=== PATIENT | female | born 1985 | race American Indian/Alaskan Native ===

== ENCOUNTER 2018-11-08 11:46 | Emergency (ER) | payer SELFPAY ==
--- NOTE | 2018-11-08 12:59 | Emergency Department Report ---
ED General Adult HPI - General Chief complaint: Eye Problems Stated complaint: BLURY VISION/VAGINAL SWELLING Time Seen by Provider: 11/08/18 12:10 Source: patient Mode of arrival: Ambulatory Limitations: No Limitations - History of Present Illness Initial comments: 32-year-old female presents to the hospital complaining of blurred vision 3 weeks and right vaginal pain after shaving since last night. Patient reports that she's been told in the past that she is a diabetic but has not ever been on medications due to lack of follow-up. POC glucose is 133 here today. Patient states she has lost some weight since her initial diagnosis. Patient is concerned that her intermittent blurred vision could be due to diabetes. She does not currently wear glasses or contacts. Patient complains of pain to the right labia that happened after shaving her vagina yesterday. She feels a palpable area of tenderness and swelling. Patient states she is not concerned about STD and is not currently sexually active. Severity scale (0 -10): 0 - Related Data Allergies Allergy/AdvReac Type Severity Reaction Status Date / Time No Known Allergies Allergy Verified 11/08/18 11:56 ED Review of Systems ROS: Stated complaint: BLURY VISION/VAGINAL SWELLING Other details as noted in HPI Comment: All other systems reviewed and negative ED Past Medical Hx - Past Medical History Hx Diabetes: Yes - Surgical History Past Surgical History?: No - Social History Smoking Status: Never Smoker Substance Use Type: Alcohol ED Physical Exam - General Limitations: No Limitations - Other Other exam information: Gen.: No acute distress Head: Atraumatic Eyes: Normal appearance, extraocular movements intact, pupils equal reactive to light. Vision acuity left 20/25, right 20/25, and both 20/25 ENT: Moist mucous membranes Neck: Normal appearance, no posterior midline tenderness, no meningismus Chest: Clear to auscultation bilaterally Cardiovascular: Regular rate and rhythm Abdomen: Normal appearance, soft, nontender, no rebound or guarding, normal bowel sounds : Small tender subcutaneous swelling to the right superior labial majora area. No signs of erythema, discharge, or fluctuance. Skin surface appears normal. Back: Normal appearance, nontender Extremity: Full range of motion, normal appearance Neuro: Alert, clear speech, no focal motor or sensory deficit Psychiatric: Appropriate Skin: No rash ED Course Vital Signs 11/08/18 11:56 Temperature 98.8 F Pulse Rate 87 Respiratory 18 Rate Blood Pressure 154/88 [Right] O2 Sat by Pulse 97 Oximetry ED Medical Decision Making - Lab Data Lab Results 11/08/18 11/08/18 Range/Units 12:02 13:07 POC Glucose 133 H (70-105) Urine Color Yellow (Yellow) Urine Turbidity Clear (Clear) Urine pH 6.0 (5.0-7.0) Ur Specific [place] 1.020 (1.003-1.030) Urine Protein <15 mg/dl (Negative) mg/dL Urine Glucose (UA) Neg (Negative) mg/dL Urine Ketones Neg (Negative) mg/dL Urine Blood Neg (Negative) Urine Nitrite Neg (Negative) Urine Bilirubin Neg (Negative) Urine Urobilinogen < 2.0 (<2.0) mg/dL Ur Leukocyte Esterase Neg (Negative) Urine WBC (Auto) 1.0 (0.0-6.0) /HPF Urine RBC (Auto) 1.0 (0.0-6.0) /HPF U Epithel Cells (Auto) 1.0 (0-13.0) /HPF Urine Bacteria (Auto) 1+ (Negative) /HPF Urine Mucus Few /HPF Urine HCG, Qual Negative (Negative) - Medical Decision Making Patient does not have any signs or symptoms of vaginitis. She complains of localized pain secondary to trauma up shaving. Patient encouraged not to shave her vaginal area but to use alternative means of hear removal such as waxing. Clinically there are no signs of localized infection, abscess, or laceration at this time. Patient reports blurred vision but has 20/25 vision bilateral. Outpatient follow-up with PMD and ophthalmology last moisture meter reader will be encouraged. ua neg - Differential Diagnosis visual problems, diabetes, vaginitis, abscess Critical Care Time: No Critical care attestation.: If time is entered above; I have spent that time in minutes in the direct care of this critically ill patient, excluding procedure time. ED Disposition Clinical Impression: Vaginal irritation, Visual problems Disposition: DC-01 TO HOME OR SELFCARE Is pt being admited?: No Does the pt Need Aspirin: No Condition: Stable Instructions: Vaginitis (ED), Blurred Vision (ED) Additional Instructions: Take the medication as prescribed. Follow-up with your doctor or with the doctor/clinic provided. Return if symptoms worsen as indicated by your discharge instructions. Referrals: [facility] [Provider Group] - 3-5 Days (primary care clinic) ISADORA MOSLEY MD [Staff Physician] - 3-5 Days (eye doctor) ANDREIA SMITH MD [Staff Physician] - 3-5 Days (data report analyst md ) Time of Disposition: 13:48
[2018-11-08 13:31] LABS: Bacteria,Urine 1+ /HPF (Negative); Bilirubin,Urine NEG (Negative); Blood,Urine NEG (Negative); Color,Urine Yellow (Yellow); Mucus,Urine FEW /HPF; Protein,Urine <15 mg/dL mg/dL (Negative); Urobilinogen,Urine < 2.0 mg/dL (<2.0)
[2018-11-08 13:33] LABS: HCG Qualitative,Urine Negative (Negative)
[2018-11-08 14:24] VITALS: BP 138/87
== END 2018-11-08 14:13 | disposition home or self-care (01) ==
LOC: ED 11:46
DX: N89.8 Other specified noninflammatory disorders of vagina (principal); H54.7 Unspecified visual loss; E11.9 Type 2 diabetes mellitus without complications
CPT/HCPCS: 81001; 81025; 82962